=== PATIENT | female | born 1950 | race Caucasian/White ===

== ENCOUNTER 2022-01-26 07:00 | Day surgery (SDC) | payer MEDICARE, BC ==
[~2022-01-26 07:00] MED LIST: Lactated Ringers 1,000 ML IV SCH
[2022-01-26] MEDS ORDERED: Lidocaine 2% 5 ML SDV ONE (07:18)
[2022-01-26] MEDS ORDERED: fentaNYL 100 MCG/2 ML SDV ONE (07:18)
[2022-01-26] MEDS ORDERED: Propofol 200 MG/20 ML SDV ONE (07:18)
== END 2022-01-26 10:15 | disposition home or self-care (01) ==
LOC: MW.SDS 07:00
PROVIDERS: ATTEND Surgery
DX: D12.2 Benign neoplasm of ascending colon (principal); K57.30 Diverticulosis of large intestine without perforation or abscess without bleeding; K64.8 Other hemorrhoids; K58.9 Irritable bowel syndrome, unspecified; N18.30 Chronic kidney disease, stage 3 unspecified; E66.9 Obesity, unspecified; Z68.42 Body mass index [BMI] 45.0-49.9, adult; Z79.82 Long term (current) use of aspirin; Z79.899 Other long term (current) drug therapy; Z90.49 Acquired absence of other specified parts of digestive tract; Z98.890 Other specified postprocedural states; I12.9 Hypertensive chronic kidney disease with stage 1 through stage 4 chronic kidney disease, or unspecified chronic kidney disease
CPT/HCPCS: J2704; J3010; J7120

== ENCOUNTER 2023-03-16 15:12 | Emergency (ER) | payer MEDICARE, BC ==
[2023-03-16] MEDS ORDERED: Ondansetron 4 MG/2 ML SDV IVPUSH ONE (16:02)
[2023-03-16] MEDS ORDERED: Sodium Chloride 0.9% 10 ML Syringe FLUSH PRN (16:02)
[2023-03-16] MEDS ORDERED: Morphine 4 MG/ML Syringe IVPUSH ONE (16:02)
[2023-03-16] MEDS ORDERED: Sodium Chloride 0.9% 2.5 ML Syringe FLUSH PRN (16:02)
[2023-03-16] MEDS ORDERED: Sodium Chloride 0.9% 1,000 ML IV ONE (16:02)
[2023-03-16] MEDS ORDERED: Naloxone 0.4 MG/ML SDV IVPUSH PRN (16:02)
[2023-03-16 16:46] LABS: BASOPHILS ABSOLUTE AUTO 0.08 K/uL (0.00-0.20); BASOPHILS PERCENT AUTO 1.1 % (0.0-1.0); EOSINOPHILS ABSOLUTE AUTO 0.39 K/uL (0.00-0.45); EOSINOPHILS PERCENT AUTO 5.4 % (0.0-6.0); HEMATOCRIT 47.1 % (37.0-47.0); HEMOGLOBIN 15.9 g/dL (12.0-16.0); IMMATURE GRAN ABSOLUTE AUTO 0.01 K/uL (0.00-0.05); IMMATURE GRAN PERCENT AUTO 0.1 % (0.0-0.4); LYMPHOCYTES ABSOLUTE AUTO 1.78 K/uL (1.00-4.80); LYMPHOCYTES PERCENT AUTO 24.8 % (24.0-44.0); MEAN CORPUSCULAR HGB CONC 33.8 g/dL (32.0-36.0); MEAN CORPUSCULAR VOLUME 85.9 fL (83.0-99.0); MEAN PLATELET VOLUME 8.7 fL (9.4-12.3); MONOCYTES ABSOLUTE AUTO 0.63 K/uL (0.00-0.80); MONOCYTES PERCENT AUTO 8.8 % (0.0-8.0); NEUTROPHILS ABSOLUTE AUTO 4.29 K/uL (1.80-7.70); NEUTROPHILS PERCENT AUTO 59.8 % (41.0-71.0); PLATELET COUNT,PLT 335 K/uL (150-400); RED BLOOD CELL COUNT 5.48 M/uL (4.10-5.30); WHITE BLOOD CELL COUNT,WBC 7.18 K/uL (3.9-11.3)
[2023-03-16 17:21] LABS: A/G RATIO 0.8 (0.9-1.6); ALBUMIN 3.4 g/dL (3.4-5.0); BILIRUBIN TOTAL 0.5 mg/dL (0.2-1.0); CALCIUM 9.7 mg/dL (8.5-10.1); CARBON DIOXIDE,CO2 29.3 mmol/L (21.0-32.0); CREATININE 1.3 mg/dL (0.6-1.0); EST CRCL DRUG DOSING (CG) 35.2 mL/min; POTASSIUM,K 3.3 mmol/L (3.5-5.1); PROTEIN TOTAL,TP 7.6 g/dL (6.4-8.2)
[2023-03-16] MEDS ORDERED: Iopamidol 755 MG/ML 500 ML Multipack Bottle IVPUSH ONE (18:36)
== END 2023-03-16 19:30 | disposition home or self-care (01) ==
LOC: MW.ED 15:12
DX: K43.9 Ventral hernia without obstruction or gangrene (principal); I10 Essential (primary) hypertension; R19.7 Diarrhea, unspecified; E03.9 Hypothyroidism, unspecified; E66.9 Obesity, unspecified; Z68.41 Body mass index [BMI] 40.0-44.9, adult; Z88.8 Allergy status to other drugs, medicaments and biological substances; Z79.82 Long term (current) use of aspirin; Z79.899 Other long term (current) drug therapy
CPT/HCPCS: 36415; 71046; 74177; 80053; 83690; 84484; 85025; 93005; 96361; 96374; 96375; 99285; J2270; J2405; J3490; J7030; Q9967; 93010; 99284

== ENCOUNTER 2023-03-22 12:20 | Emergency (ER) | payer MEDICARE, BC ==
[2023-03-22] MEDS ORDERED: Sodium Chloride 0.9% 1,000 ML IV ONE (12:28)
[2023-03-22] MEDS ORDERED: Ondansetron 4 MG/2 ML SDV IVPUSH ONE (12:40)
[2023-03-22 13:00] LABS: RED BLOOD CELL COUNT 5.66 M/uL (4.10-5.30); WHITE BLOOD CELL COUNT,WBC 4.88 K/uL (3.9-11.3)
[2023-03-22 13:01] LABS: BASOPHILS ABSOLUTE AUTO 0.01 K/uL (0.00-0.20); BASOPHILS PERCENT AUTO 0.2 % (0.0-1.0); EOSINOPHILS ABSOLUTE AUTO 0.01 K/uL (0.00-0.45); EOSINOPHILS PERCENT AUTO 0.2 % (0.0-6.0); HEMATOCRIT 48.6 % (37.0-47.0); HEMOGLOBIN 16.7 g/dL (12.0-16.0); IMMATURE GRAN ABSOLUTE AUTO 0.01 K/uL (0.00-0.05); IMMATURE GRAN PERCENT AUTO 0.2 % (0.0-0.4); LYMPHOCYTES ABSOLUTE AUTO 0.94 K/uL (1.00-4.80); LYMPHOCYTES PERCENT AUTO 19.3 % (24.0-44.0); MEAN CORPUSCULAR HEMOGLOBIN 29.5 pg (28.0-32.0); MEAN CORPUSCULAR HGB CONC 34.4 g/dL (32.0-36.0); MEAN CORPUSCULAR VOLUME 85.9 fL (83.0-99.0); MEAN PLATELET VOLUME 9.1 fL (9.4-12.3); MONOCYTES ABSOLUTE AUTO 0.63 K/uL (0.00-0.80); MONOCYTES PERCENT AUTO 12.9 % (0.0-8.0); NEUTROPHILS ABSOLUTE AUTO 3.28 K/uL (1.80-7.70); NEUTROPHILS PERCENT AUTO 67.2 % (41.0-71.0); PLATELET COUNT,PLT 252 K/uL (150-400)
[2023-03-22 13:25] LABS: COLOR,URINE YELLOW; GLUCOSE,URINE NEGATIVE (NEGATIVE); KETONES,URINE 15 mg/dL (NEGATIVE); LEUKOCYTE ESTERASE,URINE NEGATIVE (NEGATIVE); NITRITE,URINE NEGATIVE (NEGATIVE); OCCULT BLOOD,URINE NEGATIVE (NEGATIVE); PH,URINE 6.5 (5.0-8.0); PROTEIN,URINE 30 mg/dL (NEGATIVE); UROBILINOGEN,URINE 0.2 EU/dL (<2.0)
[2023-03-22 13:25] LABS: A/G RATIO 0.9 (0.9-1.6); ALBUMIN 3.7 g/dL (3.4-5.0); BILIRUBIN TOTAL 0.5 mg/dL (0.2-1.0); CALCIUM 9.5 mg/dL (8.5-10.1); CARBON DIOXIDE,CO2 24.9 mmol/L (21.0-32.0); CREATININE 1.7 mg/dL (0.6-1.0); EST CRCL DRUG DOSING (CG) 23.66 mL/min; POTASSIUM,K 3.4 mmol/L (3.5-5.1); PROTEIN TOTAL,TP 7.9 g/dL (6.4-8.2)
[2023-03-22 13:28] LABS: APPEARANCE,URINE HAZY; BILIRUBIN,URINE MODERATE (NEGATIVE)
[2023-03-22] MEDS ORDERED: Loperamide 2 MG Cap PO ONE (13:34)
[2023-03-22] MEDS ORDERED: Dicyclomine 10 MG Cap PO ONE (13:35)
[2023-03-22 13:41] LABS: BACTERIA,URINE 1+ (NEGATIVE); EPITHELIAL CELLS,URINE FEW (NONE-FEW); RBC,URINE 0-3 (0-2/HPF); WBC,URINE 0-3 (0-5/HPF)
== END 2023-03-22 15:24 | disposition home or self-care (01) ==
LOC: MW.ED 12:20
DX: R19.7 Diarrhea, unspecified (principal); I12.9 Hypertensive chronic kidney disease with stage 1 through stage 4 chronic kidney disease, or unspecified chronic kidney disease; N18.30 Chronic kidney disease, stage 3 unspecified; E03.9 Hypothyroidism, unspecified; E66.9 Obesity, unspecified; Z68.42 Body mass index [BMI] 45.0-49.9, adult; Z88.8 Allergy status to other drugs, medicaments and biological substances; Z79.899 Other long term (current) drug therapy
CPT/HCPCS: 36415; 80053; 81001; 83690; 85025; 87324; 87338; 96361; 96374; 99284; 99284-25; A9270-GY; J2405; J7030

== ENCOUNTER 2023-04-19 06:25 | Day surgery (SDC) | payer MEDICARE, BC ==
[~2023-04-19 06:25] MED LIST changes: +Acetaminophen 1,000 MG in Premix Bag 1 BAG IV SCH; +Pregabalin 75 MG Cap PO SCH; +ceFAZolin 2 GM in Sodium Chloride 0.9% 50 ML IV ONE
[2023-04-19] MEDS ORDERED: Ropivacaine 0.5% 5 MG/ML 30 ML SDV ONE (07:31)
[2023-04-19] MEDS ORDERED: Famotidine 20 MG/2 ML SDV ONE (07:32)
[2023-04-19] MEDS ORDERED: Metoclopramide 10 MG/2 ML SDV IVPUSH PRN (07:33)
[2023-04-19] MEDS ORDERED: Naloxone 0.4 MG/ML SDV IVPUSH PRN (07:33)
[2023-04-19] MEDS ORDERED: HYDROmorphone 1 MG/ML Syringe IVPUSH PRN (07:33)
[2023-04-19] MEDS ORDERED: Morphine 2 MG/ML SYRINGE IVPUSH PRN (07:33)
[2023-04-19] MEDS ORDERED: droPERidol 5 MG/2 ML SDV IVPUSH PRN (07:33)
[2023-04-19] MEDS ORDERED: fentaNYL 50 MCG/ML SDV IVPUSH PRN (07:33)
[2023-04-19] MEDS ORDERED: Ondansetron 4 MG/2 ML SDV IVPUSH PRN (07:33)
[2023-04-19] MEDS ORDERED: Albuterol 0.083% 2.5 MG/3 ML Neb Soln NEB PRN (07:33)
[2023-04-19] MEDS ORDERED: Morphine 10 MG/ML SDV ONE (07:37)
[2023-04-19] MEDS ORDERED: propofoL 50 ML ONE ×2 (07:37→08:48)
[2023-04-19] MEDS ORDERED: Propofol 200 MG/20 ML SDV ONE (07:37)
[2023-04-19] MEDS ORDERED: fentaNYL 250 MCG/5 ML SDV ONE (07:41)
[2023-04-19] MEDS ORDERED: Bupivacaine 0.5%/EPINEPHrine 1:200,000 30 ML SDV ONE (07:44)
[2023-04-19] MEDS ORDERED: Ondansetron 4 MG/2 ML SDV ONE (09:20)
[2023-04-19] MEDS ORDERED: Rocuronium Bromide 50 MG/5 ML Syringe ONE (09:20)
[2023-04-19] MEDS ORDERED: Sugammadex Sodium 200 MG/2 ML VIAL ONE (09:20)
[2023-04-19] MEDS ORDERED: ceFAZolin 2 GM Vial ONE (11:15)
== END 2023-04-19 12:20 | disposition home or self-care (01) ==
LOC: MW.SDS 06:25
PROVIDERS: ATTEND Surgery
DX: K43.0 Incisional hernia with obstruction, without gangrene (principal); I12.9 Hypertensive chronic kidney disease with stage 1 through stage 4 chronic kidney disease, or unspecified chronic kidney disease; N18.30 Chronic kidney disease, stage 3 unspecified; K21.9 Gastro-esophageal reflux disease without esophagitis; E03.9 Hypothyroidism, unspecified; E66.9 Obesity, unspecified; Z68.42 Body mass index [BMI] 45.0-49.9, adult; E78.00 Pure hypercholesterolemia, unspecified; Z90.710 Acquired absence of both cervix and uterus; Z79.82 Long term (current) use of aspirin; Z79.890 Hormone replacement therapy; Z79.899 Other long term (current) drug therapy
CPT/HCPCS: 49592; 64486; A9270; C1781; J0690; J2270; J2405; J2704; J2795; J3010; J3490; J7120; 00752; 64488; 99100

== ENCOUNTER 2023-10-31 13:55 | Emergency (ER) | payer MEDICARE, BC ==
[2023-10-31] MEDS: Aspirin 81 MG Tab.Chew PO ONE (14:20)
[2023-10-31 14:21] LABS: BASOPHILS ABSOLUTE AUTO 0.08 K/uL (0.00-0.20); EOSINOPHILS ABSOLUTE AUTO 0.46 K/uL (0.00-0.45); HEMATOCRIT 49.6 % (37.0-47.0); HEMOGLOBIN 16.5 g/dL (12.0-16.0); IMMATURE GRAN ABSOLUTE AUTO 0.02 K/uL (0.00-0.05); IMMATURE GRAN PERCENT AUTO 0.3 % (0.0-0.4); LYMPHOCYTES ABSOLUTE AUTO 1.79 K/uL (1.00-4.80); LYMPHOCYTES PERCENT AUTO 23.2 % (24.0-44.0); MEAN CORPUSCULAR HEMOGLOBIN 29.3 pg (28.0-32.0); MEAN CORPUSCULAR HGB CONC 33.3 g/dL (32.0-36.0); MEAN CORPUSCULAR VOLUME 88.1 fL (83.0-99.0); MEAN PLATELET VOLUME 8.6 fL (9.4-12.3); MONOCYTES PERCENT AUTO 7.8 % (0.0-8.0); NEUTROPHILS ABSOLUTE AUTO 4.75 K/uL (1.80-7.70); NEUTROPHILS PERCENT AUTO 61.7 % (41.0-71.0); PLATELET COUNT,PLT 348 K/uL (150-400); RED BLOOD CELL COUNT 5.63 M/uL (4.10-5.30)
[2023-10-31] MEDS: Sodium Chloride 0.9% 2.5 ML Syringe FLUSH PRN (14:21)
[2023-10-31] MEDS: Ondansetron 4 MG/2 ML SDV IVPUSH ONE (14:21)
[2023-10-31] MEDS: Sodium Chloride 0.9% 10 ML Syringe FLUSH PRN (14:21)
[2023-10-31] MEDS: Morphine 2 MG/ML SYRINGE IVPUSH ONE (14:21)
[2023-10-31 14:56] LABS: A/G RATIO 0.8 (0.9-1.6); ALBUMIN 3.7 g/dL (3.4-5.0); BILIRUBIN TOTAL 0.5 mg/dL (0.2-1.0); CALCIUM 9.8 mg/dL (8.5-10.1); CARBON DIOXIDE,CO2 27.1 mmol/L (21.0-32.0); CREATININE 1.2 mg/dL (0.6-1.0); EST CRCL DRUG DOSING (CG) 29.99 mL/min; POTASSIUM,K 3.6 mmol/L (3.5-5.1); PROTEIN TOTAL,TP 8.1 g/dL (6.4-8.2); TSH ULTRASENSITIVE 3.04 uIU/mL (0.36-3.74)
[2023-10-31 14:58] LABS: CORONAVIRUS COVID-19 NAA NEGATIVE (NEGATIVE); INFLUENZA A NAA NEGATIVE (NEGATIVE); INFLUENZA B NAA NEGATIVE (NEGATIVE); RESPIRATORY SYNCYTIAL VIR NAA NEGATIVE (NEGATIVE)
== END 2023-10-31 15:52 | disposition home or self-care (01) ==
LOC: MW.ED 13:55
DX: R07.2 Precordial pain (principal); E78.00 Pure hypercholesterolemia, unspecified; J45.909 Unspecified asthma, uncomplicated; I12.9 Hypertensive chronic kidney disease with stage 1 through stage 4 chronic kidney disease, or unspecified chronic kidney disease; N18.30 Chronic kidney disease, stage 3 unspecified; E03.9 Hypothyroidism, unspecified; E66.9 Obesity, unspecified; K21.9 Gastro-esophageal reflux disease without esophagitis; Z79.899 Other long term (current) drug therapy; Z79.82 Long term (current) use of aspirin; Z88.8 Allergy status to other drugs, medicaments and biological substances
CPT/HCPCS: 0241U; 36415; 71045; 80053; 83880; 84443; 84484; 85025; 93005; 96374; 96375; 99285; A9270; J2270; J2405; J3490; 93010; 99284

== ENCOUNTER 2024-03-13 22:06 | Emergency (ER) | payer MEDICARE, BC ==
[2024-03-13] MEDS: Acetaminophen 500 MG Tab PO ONE (22:38)
== END 2024-03-13 23:23 | disposition home or self-care (01) ==
LOC: MW.ED 22:06
DX: S92.411A Displaced fracture of proximal phalanx of right great toe, initial encounter for closed fracture (principal); I10 Essential (primary) hypertension; K21.9 Gastro-esophageal reflux disease without esophagitis; E66.9 Obesity, unspecified; E03.9 Hypothyroidism, unspecified; Z86.16 Personal history of COVID-19; Z90.49 Acquired absence of other specified parts of digestive tract; Z90.710 Acquired absence of both cervix and uterus; Z79.82 Long term (current) use of aspirin; Z79.899 Other long term (current) drug therapy; Z79.890 Hormone replacement therapy; Z88.8 Allergy status to other drugs, medicaments and biological substances; Z68.42 Body mass index [BMI] 45.0-49.9, adult; X58.XXXA Exposure to other specified factors, initial encounter
CPT/HCPCS: 73620; 99283; A9270

== ENCOUNTER 2024-10-08 15:40 | Emergency (ER) | payer MEDICARE, BC ==
[2024-10-08] MEDS ORDERED: Sodium Chloride 0.9% 10 ML Syringe FLUSH PRN (16:45)
[2024-10-08] MEDS ORDERED: Sodium Chloride 0.9% 2.5 ML Syringe FLUSH PRN (16:45)
[2024-10-08] MEDS ORDERED: Sodium Chloride 0.9% 20 ML SDV IV PRN (16:45)
[2024-10-08 16:58] LABS: BASOPHILS ABSOLUTE AUTO 0.07 K/uL (0.00-0.20); BASOPHILS PERCENT AUTO 0.9 % (0.0-1.0); EOSINOPHILS PERCENT AUTO 5.2 % (0.0-6.0); HEMATOCRIT 45.9 % (37.0-47.0); HEMOGLOBIN 15.2 g/dL (12.0-16.0); IMMATURE GRAN ABSOLUTE AUTO 0.01 K/uL (0.00-0.05); IMMATURE GRAN PERCENT AUTO 0.1 % (0.0-0.4); LYMPHOCYTES ABSOLUTE AUTO 1.95 K/uL (1.00-4.80); LYMPHOCYTES PERCENT AUTO 25.6 % (24.0-44.0); MEAN CORPUSCULAR HEMOGLOBIN 28.8 pg (28.0-32.0); MEAN CORPUSCULAR HGB CONC 33.1 g/dL (32.0-36.0); MEAN CORPUSCULAR VOLUME 87.1 fL (83.0-99.0); MEAN PLATELET VOLUME 8.7 fL (9.4-12.3); MONOCYTES ABSOLUTE AUTO 0.56 K/uL (0.00-0.80); MONOCYTES PERCENT AUTO 7.3 % (0.0-8.0); NEUTROPHILS ABSOLUTE AUTO 4.64 K/uL (1.80-7.70); NEUTROPHILS PERCENT AUTO 60.9 % (41.0-71.0); PLATELET COUNT,PLT 332 K/uL (150-400); RED BLOOD CELL COUNT 5.27 M/uL (4.10-5.30); WHITE BLOOD CELL COUNT,WBC 7.63 K/uL (3.9-11.3)
[2024-10-08 17:23] LABS: ALBUMIN 3.7 g/dL (3.4-5.0); BILIRUBIN TOTAL 0.6 mg/dL (0.2-1.0); CALCIUM 9.5 mg/dL (8.5-10.1); CREATININE 1.3 mg/dL (0.6-1.0); EST CRCL DRUG DOSING (CG) 27.27 mL/min; MAGNESIUM 1.9 mg/dL (1.8-2.4); PROTEIN TOTAL,TP 7.5 g/dL (6.4-8.2)
[2024-10-08] MEDS: hydrALAZINE 20 MG/ML SDV IVPUSH ONE (20:35)
== END 2024-10-08 21:07 | disposition home or self-care (01) ==
LOC: MW.ED 15:40
DX: M79.605 Pain in left leg (principal); I10 Essential (primary) hypertension; E78.00 Pure hypercholesterolemia, unspecified; K21.9 Gastro-esophageal reflux disease without esophagitis; E03.9 Hypothyroidism, unspecified; E66.9 Obesity, unspecified; Z79.899 Other long term (current) drug therapy; Z68.43 Body mass index [BMI] 50.0-59.9, adult
CPT/HCPCS: 36415; 71046; 71046-26; 80053; 83735; 84484; 85025; 93005; 93970; 93970-26; 99284